=== PATIENT | male | born 1995 | race American Indian/Alaskan Native ===

== ENCOUNTER 2020-05-30 06:04 | Emergency (ER) | payer SELFPAY ==
--- NOTE | 2020-05-30 06:20 | EDM.PDOC ---
ED HPI GENERAL MEDICAL PROBLEM - General Stated Complaint: TOP AND BOTTOM BACK TEETH HURTS Time Seen by Provider: 05/30/20 06:16 Source of Information: Reports: Patient History Limitations: Reports: No Limitations - History of Present Illness INITIAL COMMENTS - FREE TEXT/NARRATIVE: ED with c/o dental pain x 2 days. has not contacted dentist. Tylenol but nothing else for pain, Didn't help. No Fever. Right Upper Tooth/Teeth Pain Score (Numeric/FACES): 10 Right Lower Tooth/Teeth Pain Score (Numeric/FACES): 10 - Related Data Allergies Allergy/AdvReac Type Severity Reaction Status Date / Time amoxicillin Allergy Rash Verified 05/30/20 06:32 Home Meds: Home Meds . [No Known Home Meds] 05/30/20 [History] ED ROS ENT - Review of Systems Review Of Systems: Comprehensive ROS is negative, except as noted in HPI. ED EXAM, ENT - Physical Exam Exam: See Below Exam Limited By: No Limitations General Appearance: Alert, Mild Distress, Thin Eye Exam: Bilateral Eye: EOMI Ears: Normal External Exam, Normal Canal Nose: Normal Inspection Mouth/Throat: Dental Pain, Dental Tenderness, Other (upper and lower rear molar with large decay, mild swelling of gum tissue) Head: Atraumatic, Normocephalic Respiratory/Chest: No Respiratory Distress, Lungs Clear Cardiovascular: Regular Rate, Rhythm Extremities: Normal Range of Motion Neurological: Alert, Oriented, Normal Cognition Skin: Warm, Dry, Intact, Normal Color Course - Vital Signs Last Recorded V/S: Last Vital Signs Temp 97.7 F 05/30/20 06:16 Pulse 58 L 05/30/20 06:16 Resp 17 05/30/20 06:16 BP 118/74 05/30/20 06:16 Pulse Ox 95 05/30/20 06:16 - Orders/Labs/Meds Meds: Medications Discontinued Medications Generic Name Dose Route Start Last Admin Trade Name Freq PRN Reason Stop Dose Admin Amoxicillin 500 mg 05/30/20 06:23 05/30/20 06:32 Amoxil PO 05/30/20 06:24 Not Given ONETIME ONE Clindamycin HCl 300 mg 05/30/20 06:30 Cleocin PO 05/30/20 06:31 ONETIME ONE Ibuprofen 600 mg 05/30/20 06:23 05/30/20 06:32 Motrin PO 05/30/20 06:24 600 mg ONETIME ONE Administration Departure - Departure Time of Disposition: 06:28 Disposition: Home, Self-Care 01 Condition: Good Clinical Impression: Dental caries, Pain due to dental caries - Discharge Information *PRESCRIPTION DRUG MONITORING PROGRAM REVIEWED*: No *COPY OF PRESCRIPTION DRUG MONITORING REPORT IN PATIENT RITESH: No Instructions: Dental Abscess, [id number] Additional Instructions: [id number] three times daily Ibuprofen 600mg one every 6 hours as needed for pain, may alternate with tylenol 650mg every 4 hours chew on opposite side anbesol to affected area as needed follow up with dentist Sepsis Event Note (ED) - Focused Exam Vital Signs: Vital Signs Temp Pulse Resp BP Pulse Ox 05/30/20 06:16 97.7 F 58 L 17 118/74 95
[2020-05-30] MEDS ORDERED: Ibuprofen 600 MG Tab PO ONE (06:23)
[2020-05-30] MEDS ORDERED: Amoxicillin 500 MG Cap PO ONE (06:23)
[2020-05-30] MEDS ORDERED: Clindamycin HCl 150 MG Cap PO ONE (06:30)
== END 2020-05-30 06:44 | disposition home or self-care (01) ==
LOC: DL.ED 06:04
DX: K02.9 Dental caries, unspecified (principal); Z88.0 Allergy status to penicillin
CPT/HCPCS: 99282; A9270; 99283

== ENCOUNTER 2021-09-20 18:59 | Emergency (ER) | payer SELFPAY ==
[2021-09-20] MEDS ORDERED: Aspirin 81 MG Tab.Chew PO ONE (19:28)
[2021-09-20] MEDS ORDERED: Sodium Chloride 0.9% 1,000 ML IV ONE (19:28)
[2021-09-20 20:10] LABS: ANION GAP 16.1 mEq/L (7-13); CHLORIDE,CL 104 mmol/L (98-107); SODIUM,NA 142 mmol/L (136-145)
[2021-09-20 20:40] LABS: CORONAVIRUS COVID-19 NAA NEGATIVE (NEGATIVE)
[2021-09-20 21:13] LABS: AMPHETAMINES,URINE POSITIVE (NEGATIVE); BARBITURATES,URINE NEGATIVE (NEGATIVE); BENZODIAZEPINE,URINE NEGATIVE (NEGATIVE); MDMA (ECSTASY), URINE POSITIVE (NEGATIVE); METHADONE,URINE NEGATIVE (NEGATIVE); METHAMPHETAMINES,URINE POSITIVE (NEGATIVE); OPIATES,URINE NEGATIVE (NEGATIVE); OXYCODONE,URINE NEGATIVE (NEGATIVE); PHENCYCLIDINE,URINE NEGATIVE (NEGATIVE); TCA,URINE NEGATIVE (NEGATIVE)
== END 2021-09-20 21:32 | disposition home or self-care (01) ==
LOC: DL.ED 18:59
DX: K02.9 Dental caries, unspecified (principal); L08.9 Local infection of the skin and subcutaneous tissue, unspecified; R82.5 Elevated urine levels of drugs, medicaments and biological substances; F15.10 Other stimulant abuse, uncomplicated; F17.210 Nicotine dependence, cigarettes, uncomplicated; Z88.0 Allergy status to penicillin; Z20.822 Contact with and (suspected) exposure to COVID-19
CPT/HCPCS: 0240U; 36415; 71045; 80053; 80305-QW; 82150; 82947; 83605; 83690; 83735; 84443; 84484; 85025; 85379; 85610; 87040; 93005; 99284; 99284-25; A9270-GY; J7030